=== PATIENT | female | born 1990 | race Caucasian/White ===

== ENCOUNTER 2017-10-30 14:29 | Emergency (ER) | payer MEDICAID ==
[2017-10-30] MEDS: Sodium Chloride 0.9% 1,000 ML IV ONE (16:20)
[2017-10-30 16:28] LABS: % BASOPHILS 0.2 % (0.0-2.0); % EOSINOPHILS 0.3 % (0.0-5.0); % LYMPHOCYTES 9.8 % (20.0-50.0); % MONOCYTES 5.8 % (2.0-10.0); % NEUTROPHILS 83.9 % (40.0-80.0); HEMATOCRIT 44.2 % (41.0-60); HEMOGLOBIN 14.8 gm/dL (12-16); MEAN CELL VOLUME 90.4 fl (81-100); MEAN CORPUSCULAR HEMOGLOBIN 30.4 pg (27.0-31.0); MEAN CORPUSCULAR HGB CONC 33.6 pg (28.0-36.0); MONOCYTE ABSOLUTE 0.6 Th/cmm (0.3-1.0); NEUTROPHILE ABSOLUTE 8.8 Th/cmm (1.8-8.0); PLATELET COUNT 232 Th/cmm (150-400); RED BLOOD COUNT 4.89 Mil/cmm (3.80-5.10); RED CELL DISTRIBUTION WIDTH 12.5 % (11.5-20.0); WHITE BLOOD COUNT 10.4 Th/cmm (4.8-10.8)
[2017-10-30] MEDS ORDERED: Morphine Sulfate 4 mg/mL 1mL Syr ONE (16:28)
[2017-10-30 16:30] LABS: URINE MICROSCOPIC INDICATED? YES; URINE SOURCE CLEAN C
[2017-10-30] MEDS: Morphine Sulfate 4 mg/mL 1mL Syr IVP STA (16:30)
[2017-10-30 16:33] LABS: URINE BILIRUBIN NEGATIVE (NEGATIVE); URINE BLOOD NEGATIVE (NEGATIVE); URINE GLUCOSE (UA) NEGATIVE (NEGATIVE); URINE KETONE NEGATIVE (NEGATIVE); URINE LEUKOCYTE ESTERASE NEGATIVE (NEGATIVE); URINE NITRATE NEGATIVE (NEGATIVE); URINE PH 8.5 (4.6 - 8.0); URINE PROTEIN 100 mg/dL (NEGATIVE); URINE UROBILINOGEN 0.2 E.U./dL (0.2 - 1.0)
[2017-10-30 16:37] LABS: URINE CLARITY HAZY (CLEAR); URINE COLOR YELLOW
[2017-10-30 16:38] LABS: URINE BACTERIA FEW /hpf (NONE SEEN); URINE EPITHELIAL CELLS MODERATE /lpf (FEW); URINE RBC 0-2 /hpf (0-5)
[2017-10-30 16:45] LABS: ALB/GLOB RATIO 1.6 (1.0-1.8); ALBUMIN 4.3 gm/dL (3.7-5.3); ALKALINE PHOSPHATASE 48 U/L (34-104); AMYLASE SERUM 23 U/L (29-103); ANION GAP 11.1 (7.0-16.0); BILIRUBIN,TOTAL 0.9 mg/dL (0.3-1.0); BUN - UREA NITROGEN 6 mg/dL (7-25); CALCIUM SERUM 9.1 mg/dL (8.6-10.3); CARBON DIOXIDE 23.4 mEq/L (21.0-31.0); CHLORIDE 105 mEq/L (98-107); CREATININE - SERUM 0.5 mg/dL (0.6-1.2); GFR AFRICAN-AMERICAN > 60.0 ml/min (>90); GFR NON AFRICAN-AMERICAN > 60.0 ml/min; GLUCOSE 96 mg/dL (70-105); LIPASE 5 U/L (11-82); POTASSIUM SERUM 3.5 mEq/L (3.5-5.1); SGOT 10 U/L (13-39); SGPT/ALT 9 U/L (7-52); SODIUM SERUM 136 mEq/L (136-145)
[2017-10-30 16:49] LABS: AMPHETAMINE URINE NEGATIVE (NEGATIVE); BARBITURATES URINE NEGATIVE (NEGATIVE); BENZODIAZEPINES QUAL URINE NEGATIVE (NEGATIVE); CANNABINOID THC NEGATIVE (NEGATIVE); COCAINE METABOLITE QUAL URINE NEGATIVE (NEGATIVE); METHADONE URINE NEGATIVE (NEGATIVE); METHAMPHETAMINES QUAL URINE NEGATIVE (NEGATIVE); OPIATES (MORPHINE) QUAL. URINE NEGATIVE (NEGATIVE); PHENCYCLIDINE (PCP) URINE NEGATIVE (NEGATIVE); TRICYCLICS (TCA) QUAL. URINE NEGATIVE (NEGATIVE)
[2017-10-30] MEDS: Multivitamin Inj 10 ML, Thiamine HCL 100 MG, Magnesium Sulfate 2 GM, Folic Acid 1 MG in... IV ONE (16:50)
--- NOTE | 2017-10-30 17:11 | ED Physician Chart ---
ED Chief Complaint/HPI - Patient Information Date Seen:: 10/30/17 Time Seen:: 16:00 Chief Complaint:: epigastric pain History of Present Illness:: 27 yr old female who drinks frequently with epigastric pain worse today with some nauseafor 6-8 hrs pain moderate intermitent stabing like 01/14 with radiation to the back Allergies:: Allergies Allergy/AdvReac Type Severity Reaction Status Date / Time No Known Allergies Allergy Verified 10/30/17 16:09 Vitals:: Vital Signs - 8 hr 10/30/17 16:09 Temp 96.8 F HR 85 RR 18 BP 130/82 O2 Sat % 96 Historian:: Patient, EMS, Family Member, Friend ED Review of Systems - Review of Systems General/Constitutional: No fever Skin: No skin lesions Head: No headache Eyes: No loss of vision ENT: No earache Neck: No neck pain Cardio Vascular: No chest pain Pulmonary: No SOB GI: Nausea, Vomiting G/U: No dysuria [employer]: No vaginal discharge Musculoskeletal: No bone or joint pain Endocrine: No polyuria Psychiatric: No prior psych history Hematopoietic: No bruising Allergic/Immuno: No urticaria Neurological: No syncope ED Past Medical History - Past Medical History Past Medical History: No significant medical hx ED Physical Exam - Physical Examination General/Constitutional: Well-developed, well-nourished Head: Atraumatic Eyes: Lids, conjuctiva normal Skin: Nl inspection ENMT: External ears, nose nl Neck: Nontender Respiratory: Nl effort/Exclusion Other GI comments:: tendernes epigastric area mild perioteneal signs : No CVA tenderness Extremities: No tenderness or effusion Neuro/Psych: Alert/oriented ED Labs/Radiology/EKG Results - Lab Results Results: Laboratory Tests 10/30/17 10/30/17 10/30/17 15:30 15:30 15:30 WBC RBC Hgb Hct MCV MCH MCHC Differential RDW Plt Count MPV Neutrophils % Lymphocytes % Monocytes % Eosinophils % Basophils % Sodium Potassium Chloride Carbon Dioxide Anion Gap BUN Creatinine Est GFR ( Amer) Est GFR (Non-Af Amer) BUN/Creatinine Ratio Glucose Calcium Total Bilirubin AST ALT Alkaline Phosphatase Total Protein Albumin Globulin Albumin/Globulin Ratio Amylase Lipase Urine Source CLEAN C Urine Color YELLOW Urine Clarity HAZY Urine pH 8.5 Ur Specific [place] 1.010 Urine Protein 100 H Urine Glucose (UA) NEGATIVE Urine Ketones NEGATIVE Urine Blood NEGATIVE Urine Nitrate NEGATIVE Urine Bilirubin NEGATIVE Urine Urobilinogen 0.2 Ur Leukocyte Esterase NEGATIVE Urine RBC 0-2 Urine WBC 2-5 Ur Epithelial Cells MODERATE Urine Bacteria FEW Urine Mucus FEW Urine Test NEGATIVE Urine Opiates Screen NEGATIVE Urine Methadone Screen NEGATIVE Ur Barbiturates Screen NEGATIVE Ur Tricyclics Screen NEGATIVE Ur Phencyclidine Scrn NEGATIVE Amphetamines Screen NEGATIVE U Methamphetamines Scrn NEGATIVE U Benzodiazepines Scrn NEGATIVE U Cocaine Metab Screen NEGATIVE U Cannabinoids Screen NEGATIVE Ethyl Alcohol 10/30/17 10/30/17 15:52 15:52 WBC 10.4 RBC 4.89 Hgb 14.8 Hct 44.2 MCV 90.4 MCH 30.4 MCHC Differential 33.6 RDW 12.5 Plt Count 232 MPV 10.0 Neutrophils % 83.9 H Lymphocytes % 9.8 L Monocytes % 5.8 Eosinophils % 0.3 Basophils % 0.2 Sodium 136 Potassium 3.5 Chloride 105 Carbon Dioxide 23.4 Anion Gap 11.1 BUN 6 L Creatinine 0.5 L Est GFR ( Amer) > 60.0 Est GFR (Non-Af Amer) > 60.0 BUN/Creatinine Ratio 12.0 Glucose 96 Calcium 9.1 Total Bilirubin 0.9 AST 10 L ALT 9 Alkaline Phosphatase 48 Total Protein 7.0 Albumin 4.3 Globulin 2.7 Albumin/Globulin Ratio 1.6 Amylase 23 L Lipase 5 L Urine Source Urine Color Urine Clarity Urine pH Ur Specific [place] Urine Protein Urine Glucose (UA) Urine Ketones Urine Blood Urine Nitrate Urine Bilirubin Urine Urobilinogen Ur Leukocyte Esterase Urine RBC Urine WBC Ur Epithelial Cells Urine Bacteria Urine Mucus Urine Test Urine Opiates Screen Urine Methadone Screen Ur Barbiturates Screen Ur Tricyclics Screen Ur Phencyclidine Scrn Amphetamines Screen U Methamphetamines Scrn U Benzodiazepines Scrn U Cocaine Metab Screen U Cannabinoids Screen Ethyl Alcohol < 10 ED Septic Shock - . Is Septic Shock (SBP<90, OR Lactate>4 mmol\L) present?: No - <6hrs of presentation: Vital Signs: Vital Signs - 8 hr 10/30/17 16:09 Temp 96.8 F HR 85 RR 18 BP 130/82 O2 Sat % 96 ED Reassessment (Disposition) - Reassessment Reassessment:: epigastric pain r/o gastritis pancreatitis Reassessment Condition:: Improved
[2017-10-30] MEDS ORDERED: Metoclopramide 5 mg/mL 2mL Vial ONE (17:46)
[2017-10-30] MEDS: Metoclopramide 5 mg/mL 2mL Vial IVP STA (17:58)
--- NOTE | 2017-10-31 09:06 | Diagnostic Imaging Report ---
CT scan of the abdomen and pelvis without intravenous contrast History: Pain Total DLP equals 534 CTDI equals 11.3 Axial sections were obtained from the xiphoid process down to the pubic symphysis. Limited sections of the lower chest demonstrate bilateral breast implants. The liver demonstrates a normal size and contour. No focal lesions are seen. The spleen appears normal. No abnormalities are seen in the region of the pancreas. The kidneys appear normal bilaterally. The exam of the pelvis demonstrates mild right adnexal enlargement with hypodensity. Findings may be associated with ovarian cystic changes. Small amount of fluid also noted in the cul-de-sac region. The findings may be on a physiologic basis. Clinical correlation and if necessary a follow-up ultrasound exam may provide for further assessment. IMPRESSION: 1. Mild right adnexal enlargement with hypodensity along with a small amount of fluid within the cul-de-sac region of the pelvis. The findings may be on a physiologic basis. Clinical correlation and if necessary a follow-up ultrasound exam may be helpful.
== END 2017-10-30 18:50 | disposition home or self-care (01) ==
LOC: ER 14:29
DX: K29.70 Gastritis, unspecified, without bleeding (principal); K85.90 Acute pancreatitis without necrosis or infection, unspecified
CPT/HCPCS: 99285; 96374; 96375; 74176; 36415; 80307; 85025; 81001; 80320; 82150; 81025; 83690; 80053; C9113; J2405; J2765; J3411; J3475; J7030; X6598